=== PATIENT | male | born 1975 | race Caucasian/White ===

== ENCOUNTER 2020-10-06 05:45 | Emergency (ER) | payer BC ==
[~2020-10-06] VITALS: Ht 175.3 cm; Wt 118.2 kg
[2020-10-06] MEDS ORDERED: CEPHALEXIN500 M1 PO (05:53)
[2020-10-06 05:59] VITALS: BP 141/86; Ht 175.3 cm; Wt 118.2 kg
== END 2020-10-06 06:16 | disposition home or self-care (01) ==
LOC: D.ER 05:45
DX: H60.11 Cellulitis of right external ear (principal)